=== PATIENT | male | born 2000 | race African-American/Black ===

== ENCOUNTER 2018-02-11 16:20 | Emergency (ER) | payer OTHER ==
[~2018-02-11] VITALS: Ht 185.4 cm; Wt 66.0 kg
[2018-02-11 16:37] VITALS: BP 117/67
== END 2018-02-11 18:03 | disposition home or self-care (01) ==
LOC: ED 17:56
DX: S61.212D Laceration without foreign body of right middle finger without damage to nail, subsequent encounter (principal)
CPT/HCPCS: 29130; 99283

== ENCOUNTER 2018-02-15 17:45 | Emergency (ER) | payer OTHER ==
[~2018-02-15] VITALS: Ht 185.4 cm; Wt 66.7 kg
[2018-02-15 17:51] VITALS: BP 112/67
== END 2018-02-15 18:27 | disposition home or self-care (01) ==
LOC: ED 18:21
DX: S61.212D Laceration without foreign body of right middle finger without damage to nail, subsequent encounter (principal); X58.XXXD Exposure to other specified factors, subsequent encounter
CPT/HCPCS: 99281

== ENCOUNTER 2018-08-15 15:36 | Emergency (ER) | payer SELFPAY ==
[~2018-08-15] VITALS: Ht 182.9 cm; Wt 65.8 kg
[2018-08-15 15:37] VITALS: BP 114/65
[2018-08-15 16:01] LABS: BASOPHILS # (AUTO) 0.04 x10^3/uL (0-0.3); BASOPHILS % (AUTO) 1 % (0-1); EOSINOPHILS # (AUTO) 0.01 x10^3/uL (0-0.8); EOSINOPHILS % (AUTO) 0 % (1-7); LYMPHOCYTES # (AUTO) 2.05 x10^3/uL (1-6.1); LYMPHOCYTES % (AUTO) 26 % (22-44); MD NO; MEAN CORPUSCULAR HEMOGLOBIN 29.6 pg (27.5-34.5); MEAN CORPUSCULAR HGB CONC 33.2 g/dL (33.2-36.2); MEAN CORPUSCULAR VOLUME 89.1 fL (81-97); MEAN PLATELET VOLUME 7.6 fL (7.4-10.4); MONOCYTES # (AUTO) 0.56 x10^3/uL (0-1.4); MONOCYTES % (AUTO) 7 % (2-9); NEUTROPHILS # (AUTO) 5.13 x10^3/uL (1.8-8.0); NEUTROPHILS % (AUTO) 66 % (42-75); PLATELET COUNT 437 x10^3/uL (130-400); RED BLOOD COUNT 4.99 x10^6/uL (4.38-5.82); RED CELL DISTRIBUTION WIDTH 14.4 % (9.4-14.8)
[2018-08-15 16:08] LABS: ALANINE AMINOTRANSFERASE 17 U/L (12-78); ALBUMIN 4.3 g/dL (3.4-5.0); ANION GAP 4 mmol/L (5-15); CHLORIDE 109 mmol/L (98-107); CREATININE 0.93 mg/dL (0.7-1.3)
[2018-08-15 16:10] LABS: ALKALINE PHOSPHATASE 130 U/L (45-117); BILIRUBIN,TOTAL 1.8 mg/dL (0.2-1.0)
[2018-08-15 17:02] LABS: MICROSCOPIC NOT IND
[2018-08-15 17:05] LABS: CULTURE INDICATED? NO
--- NOTE | 2018-08-15 17:56 | NUR ---
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
--- NOTE | 2018-08-15 18:15 | NUR ---
NO ANSWER IN LOBBY X 1 AT [phone]
--- NOTE | 2018-08-15 19:30 | NUR ---
[id number]
--- NOTE | 2018-08-15 19:42 | NUR ---
[id number]
== END 2018-08-15 19:44 | disposition left against medical advice (07) ==
LOC: ED 19:38
DX: R10.13 Epigastric pain (principal)
CPT/HCPCS: 36415; 76700; 80053; 81003; 83690; 85025; 99284